=== PATIENT | female | born 1980 | race Caucasian/White ===

== ENCOUNTER 2016-04-13 18:08 | Emergency (ER) | payer OTHER ==
--- NOTE | 2016-04-13 18:52 | ED NURSING NOTES ---
Clinical Report - Nurses [facility]ly [facility] [address] [place] [address] 04/13/2016 17:26 Patient: ISRAEL DIXON TRIAGE Triage time 1815. Acuity: LEVEL 3. Chief Complaint: ABDOMINAL PAIN. Alert. No acute distress. KAROLINA COMA SCORE: Karolina Coma Scale: 15- eyes open spontaneously (4); best verbal response- oriented x 4 (5); best motor response- obeys commands (6). --18:37 Mayela Rossi R.N. 18:31 04/13/16. BP: 110/69. HR: 101. RR: 18. O2 saturation: 100%. Temp: 99.1 F. Pain level now: 07/15. --18:37 Mayela Rossi R.N. Weight: 82.5 kg stated. Height/Length: 62 inches Per Patient. BMI: 33.3. --18:36 Mayela Rossi R.N. Medications Tamiflu Oral 75 mg, 2x a day, started 04/11/16. --18:32 Mayela Rossi R.N. Tylenol with Codeine #3 Oral, as needed. --18:33 Mayela Rossi R.N. Medication/allergy information source: the patient's pill bottles. --18:37 Mayela Rossi R.N. Allergies No Known Drug Allergy. --18:33 Mayela Rossi R.N. History Arrived by private vehicle. Historian: patient. Accompanied by family. Primary physician (Yaneth Bragg). Onset. (about 1 1/2 weeks ago). ( + flu swab on Sunday). PAST MEDICAL HX: Last normal menstrual period- Oct 2015. 5. Para 4. SOCIAL HX: Smoker- current status unknown (no). No alcohol use or drug use. FALL RISK ASSESSMENT: Fall risk assessment completed. No fall risk identified. FUNCTIONAL ASSESSMENT: Functional assessment: no impairments noted. LEARNING NEEDS ASSESSMENT: The learning needs assessment revealed no barriers. --18:37 Mayela Rossi R.N. PROBLEMS: Flu. --18:34 Mayela Rossi R.N. ADDITIONAL SURGERIES: Cholecystectomy. Hernia Repair. --18:34 Mayela Rossi R.N. Assessment GENERAL / NEURO / PSYCH: Alert. Oriented X 4. Appears in no acute distress. Patient appears calm and cooperative. RESPIRATORY: Respirations not labored. Cough. SKIN: Skin is warm and dry. --18:37 Mayela Rossi R.N. Interventions ID band on patient. To treatment room. --18:37 Mayela Rossi R.N. PHYSICAL ASSESSMENT 18:41 04/13/16. To room via wheelchair. Patient gowned. GENERAL / NEURO / PSYCH: Alert. Oriented X 4. Appears in no acute distress. RESPIRATORY: Respirations not labored. ( cough). SKIN: Skin is warm and dry. --18:41 Mayela Rossi R.N. NURSING PROGRESS NOTES 18:42 04/13/16. Patient gowned. Head of bed elevated. Call light placed in reach. Side rails up x 1. Bed placed in lowest position. Brakes of bed on. --18:42 Mayela Rossi R.N. <<STRICKEN ENTRY-- 16:45 pt was brought to the ED from OB after an OB check. --19:13 Mayela Rossi R.N. --END STRIKE>> Correction --19:13 Mayela Rossi R.N. 18:45 pt was brought to the ED from OB after an OB check. --19:14 Mayela Rossi R.N. 18:58. The patient is calm and resting quietly. Overall patient status is the same- she states feels the same. SKIN: Skin is warm and dry. --19:16 Mayela Rossi R.N. DISPOSITION / DISCHARGE Departure time: 1857. Condition at departure: stable. No learning barriers present. Discharge instructions provided and reviewed with the patient. Reviewed medication(s). Prescription(s) given to the patient. Patient and spouse verbalized understanding. Written instructions provided in Malian. The patient was discharged home and accompanied by spouse. She left the Emergency Department ambulatory and via private vehicle. Spouse driving. FALL RISK ASSESSMENT: Fall risk assessment completed. No fall risk identified. --19:12 Mayela Rossi R.N. 19:11 04/13/16. Pain level now: 07/15. Additional comments: VSS. --19:12 Mayela Rossi R.N. Locked/Released at 04/13/2016 19:17 by Mayela Rossi R.N.
--- NOTE | 2016-04-13 18:52 | ED ORDER SUMMARY ---
..... Patient: ISRAEL DIXON OrderSheet [facility] VisitID: [id number] [address] [place] [address] 35y, F Registration Date/Time: 04/13/2016 ORDER SHEET Weight: 82.5 kg (stated) Allergies: No Known Drug Allergy GENERAL ORDERS: - (NEEDS ED PROCUREMENT COST COORDINATOR NOTE.) (18:25 04/13/2016 Manjit LEVINE) (18:37 Pamela R.NPayton) MEDICATION ORDERS: IV FLUIDS: ORDER SHEET NOTES: [Electronically signed by Mayela Rossi R.N. (19:17 04/13/2016)] [Electronically signed by Santino Cruz MD (21:18 04/15/2016)] [Electronically locked/signed by Mayela Rossi R.N. (19:17 04/13/2016)]
--- NOTE | 2016-04-13 18:52 | ED CLINICAL REPORT ---
Clinical Report - Physicians/Mid Levels [facility] [address] [place] [address] 04/13/2016 17:26 Patient: ISRAEL DIXON Time Seen: Directly to L&D. Arrived- By private vehicle. Historian- patient. HISTORY OF PRESENT ILLNESS Chief Complaint: ABDOMINAL PAIN and 25 WEEK . At its maximum, severity described as moderate. When seen in the E.D., severity described as moderate. Modifying factors- worsened by cough and deep breaths. It is described as "pain" and it is described as located in the right upper quadrant. This started several days ago; Ms Mckee was evaluated initially by L&D and found not to be in labor francisco javier a verbal report by the L&D nurse who transported her to the ED for evaluation of her abdominal pain. She has had several weeks of cough without current fever or chills or shortness of breath. and is still present. No nausea, loss of appetite, vomiting or diarrhea. (She has already had a cholecystectomy). Recent medical care: The patient was seen recently by a health care provider. ( Influenza + WIC 3 days ago, is now taking Tamiflu Tylenol #3). REVIEW OF SYSTEMS No difficulty with urination, pain with urination, fever, sore throat or blurred vision. No difficulty breathing or chills. Currently . She has had chest pain and a nonproductive cough. PAST HISTORY OB: Yaneth Bragg MD, [facility] Illnessess OPS: GB, UMBILICAL HERNIA. SOCIAL HISTORY Never smoker. ADDITIONAL NOTES The nursing notes have been reviewed. PHYSICAL EXAM Vital Signs: 04/13/2016 19:11 Pain level now: 07/15. 04/13/2016 18:31 BP: 110/69. HR: 101. RR: 18. O2 saturation: 100%. Temp: 99.1 F. Pain level now: 07/15. Appearance: Alert. No acute distress. Eyes: Eyes normal inspection. ENT: Pharynx normal. Neck: Normal inspection. CVS: Normal heart rate and rhythm. Heart sounds normal. Respiratory: No respiratory distress. Breath sounds normal. Chest nontender. Abdomen: Soft and nontender. Gravid uterus palpable to midpoint between umbilicus and xiphoid. Back: Normal inspection. No CVA tenderness. Skin: Skin warm. Normal skin color. No rash. PROGRESS AND PROCEDURES Course of Care: 17:54 04/13/16. Pt was greater that 20 weeks . She went directly to L&D. She has abdominal wall pain. There is not surgical abdomen or disorder of . She is not in labor per OB team exam. Disposition: Discharged. Condition: good. CLINICAL IMPRESSION Abdominal pain. ABDOMINAL WALL PAIN HISTORY OF INFLUENZA 25 WEEKS - NOT IN LABOR. INSTRUCTIONS (THIS IS FROM SORE MUSCLES FROM COUGHING THE PLAN IS TO CONTROL COUGH USING ALBUTEROL AND THE TYLENOL #3 IT WAS WILL TAKE SEVERAL WEEKS TO TO AM MONTH TO RECOVER. IMMEDIATE RECHECK FOR VAGINAL BLEEDING OR LIQUID OR MARKED INCREASE OF ABDOMINAL CRAMPING WHEN NOT COUGHING.). Prescription Medications: Albuterol HFA oral inhaler: inhale 1-2 puffs every 4 hours. Dispense one (1) unit. No refill. (PRN COUGH) Follow-up: Follow up with your doctor MAY 01 as scheduled. Understanding of the discharge instructions verbalized by patient. (Electronically signed by Santino Cruz MD 04/15/2016 21:18)
--- NOTE | 2016-04-13 18:52 | ED ORDER SUMMARY ---
..... Patient: ISRAEL DIXON OrderSheet [facility] VisitID: [id number] [address] [place] [address] 35y, F Registration Date/Time: 04/13/2016 ORDER SHEET Weight: 82.5 kg (stated) Allergies: No Known Drug Allergy GENERAL ORDERS: - (NEEDS ED FOOD SERVER NOTE.) (18:25 04/13/2016 Manjit LEVINE) (18:37 Pamela R.NPayton) MEDICATION ORDERS: IV FLUIDS: ORDER SHEET NOTES: [Electronically signed by Mayela Rossi R.N. (19:17 04/13/2016)] [Electronically signed by Santino Cruz MD (21:18 04/15/2016)] [Electronically locked/signed by Mayela Rossi R.N. (19:17 04/13/2016)]
--- NOTE | 2016-04-13 18:52 | ED CLINICAL REPORT ---
Clinical Report - Physicians/Mid Levels [facility] [address] [place] [address] 04/13/2016 17:26 Patient: ISRAEL DIXON Time Seen: Directly to L&D. Arrived- By private vehicle. Historian- patient. HISTORY OF PRESENT ILLNESS Chief Complaint: ABDOMINAL PAIN and 25 WEEK . At its maximum, severity described as moderate. When seen in the E.D., severity described as moderate. Modifying factors- worsened by cough and deep breaths. It is described as "pain" and it is described as located in the right upper quadrant. This started several days ago; Ms Mckee was evaluated initially by L&D and found not to be in labor francisco javier a verbal report by the L&D nurse who transported her to the ED for evaluation of her abdominal pain. She has had several weeks of cough without current fever or chills or shortness of breath. and is still present. No nausea, loss of appetite, vomiting or diarrhea. (She has already had a cholecystectomy). Recent medical care: The patient was seen recently by a health care provider. ( Influenza + WIC 3 days ago, is now taking Tamiflu Tylenol #3). REVIEW OF SYSTEMS No difficulty with urination, pain with urination, fever, sore throat or blurred vision. No difficulty breathing or chills. Currently . She has had chest pain and a nonproductive cough. PAST HISTORY OB: Yaneth Bragg MD, [facility] Illnessess OPS: GB, UMBILICAL HERNIA. SOCIAL HISTORY Never smoker. ADDITIONAL NOTES The nursing notes have been reviewed. PHYSICAL EXAM Vital Signs: 04/13/2016 19:11 Pain level now: 07/15. 04/13/2016 18:31 BP: 110/69. HR: 101. RR: 18. O2 saturation: 100%. Temp: 99.1 F. Pain level now: 07/15. Appearance: Alert. No acute distress. Eyes: Eyes normal inspection. ENT: Pharynx normal. Neck: Normal inspection. CVS: Normal heart rate and rhythm. Heart sounds normal. Respiratory: No respiratory distress. Breath sounds normal. Chest nontender. Abdomen: Soft and nontender. Gravid uterus palpable to midpoint between umbilicus and xiphoid. Back: Normal inspection. No CVA tenderness. Skin: Skin warm. Normal skin color. No rash. PROGRESS AND PROCEDURES Course of Care: 17:54 04/13/16. Pt was greater that 20 weeks . She went directly to L&D. She has abdominal wall pain. There is not surgical abdomen or disorder of . She is not in labor per OB team exam. Disposition: Discharged. Condition: good. CLINICAL IMPRESSION Abdominal pain. ABDOMINAL WALL PAIN HISTORY OF INFLUENZA 25 WEEKS - NOT IN LABOR. INSTRUCTIONS (THIS IS FROM SORE MUSCLES FROM COUGHING THE PLAN IS TO CONTROL COUGH USING ALBUTEROL AND THE TYLENOL #3 IT WAS WILL TAKE SEVERAL WEEKS TO TO AM MONTH TO RECOVER. IMMEDIATE RECHECK FOR VAGINAL BLEEDING OR LIQUID OR MARKED INCREASE OF ABDOMINAL CRAMPING WHEN NOT COUGHING.). Prescription Medications: Albuterol HFA oral inhaler: inhale 1-2 puffs every 4 hours. Dispense one (1) unit. No refill. (PRN COUGH) Follow-up: Follow up with your doctor MAY 01 as scheduled. Understanding of the discharge instructions verbalized by patient. (Electronically signed by Santino Cruz MD 04/15/2016 21:18)
--- NOTE | 2016-04-15 21:18 | ED MED RECONCILIATION SUMMARY ---
Patient: ISRAEL DIXON ELSDAVIDRAMONE Medication Reconciliation Report [facility] VisitID: [id number] [address] [place] [address] 35y, F Registration Date/Time: 04/13/2016 Weight: 82.5 kg Height/Length: 62 in. BMI: 33.3 ALLERGIES: No Known Drug Allergy The patient's Home Medications are listed below: THE FOLLOWING MEDICATIONS NEED TO BE RECONCILED: Tamiflu Oral 75 mg, 2x a day Tylenol with Codeine #3 Oral The source(s) of the original Home Medication information: patient's pill bottles The following Medications were given to the patient in the Emergency Department: None. The following Medications were prescribed to the patient: Albuterol HFA oral inhaler: inhale 1-2 puffs every 4 hours. Dispense one (1) unit. No refill.(PRN COUGH) -- Santino Cruz MD
--- NOTE | 2016-04-15 21:18 | ED DISCHARGE INSTRUCTIONS ---
Patient: ISRAEL DIXON General Instructions [facility] VisitID: [id number] [address] [place] [address] 35y, F Registration Date/Time: 04/13/2016 Abdominal pain. ABDOMINAL WALL PAIN HISTORY OF INFLUENZA 25 WEEKS - NOT IN LABOR. INSTRUCTIONS (THIS IS FROM SORE MUSCLES FROM COUGHING THE PLAN IS TO CONTROL COUGH USING ALBUTEROL AND THE TYLENOL #3 IT WAS WILL TAKE SEVERAL WEEKS TO TO AM MONTH TO RECOVER. IMMEDIATE RECHECK FOR VAGINAL BLEEDING OR LIQUID OR MARKED INCREASE OF ABDOMINAL CRAMPING WHEN NOT COUGHING.). Prescription Medications: Albuterol HFA oral inhaler: inhale 1-2 puffs every 4 hours. Dispense one (1) unit. No refill. (PRN COUGH) Follow-up: Follow up with your doctor MAY 01 as scheduled. Understanding of the discharge instructions verbalized by patient. ADDITIONAL INFORMATION Abdominal Pain, Unknown Cause (Female) The exact cause of your abdominal (stomach) pain is not certain. This does not mean that this is something to worry about, or the right tests were not done. Everyone likes to know the exact cause of the problem, but sometimes with abdominal pain, there is no clear-cut cause, and this could be a good thing. The good news is that your symptoms can be treated, and you will feel better. Your condition does not seem serious now; however, sometimes the signs of a serious problem may take more time to appear. For this reason,it is important for you to watch for any new symptoms, problems,or worsening of your condition. Over the next few days, the abdominal pain may come and go, or be continuous. Other common symptoms can include nausea and vomiting. Sometimes it can be difficult to tell if you feel nauseous, you may just feel bad and not associate that feeling with nausea. Constipation, diarrhea, and a fever may go along with the pain. The pain may continue even if treated correctly over the following days. Depending on how things go, sometimes the cause can become clear and may require further or different treatment. Additional evaluations, medications, or tests may be needed. Home care Your health care provider may prescribe medications for pain, symptoms, or an infection. Follow the health care provider's instructions for taking these medications. General care Rest until your next exam. No strenuous activities. Try to find positions that ease discomfort. A small pillow placed on the abdomen may help relieve pain. Something warm on your abdomen (such as a heating pad) may help, but be careful not to burn yourself. Diet Do not force yourself to eat, especially if having cramps, vomiting, or diarrhea. Water is important so you do not get dehydrated. Soup may also be good. Sports drinks may also help, especially if they are not too acidic. Make sure you don't drink sugary drinks as this can make things worse. Take liquids in small amounts. Do not guzzle them. Caffeine sometimes makes the pain and cramping worse. Avoid dairy products if you have vomiting or diarrhea. Don't eat large amounts at a time. Wait a few minutes between bites. Eat a diet low in fiber (called a low-residue diet). Foods allowed include refined breads, white rice, fruit and vegetable juices without pulp, tender meats. These foods will pass more easily through the intestine. Avoid whole-grain foods, whole fruits and vegetables, meats, seeds and nuts, fried or fatty foods, dairy, alcohol and spicy foods until your symptoms go away. Follow-up care Follow up with your health care provider as instructed, or if your pain does not begin to improve in the next 24 hours. When to seek medical care Seek prompt medical care if any of the following occur: Pain gets worse or moves to the right lower abdomen New or worsening vomiting or diarrhea Swelling of the abdomen Unable to pass stool for more than three days Fever of 100.4F (38C) or higher, or as directed by your healthcare provider. Blood in vomit or bowel movements (dark red or black color) Jaundice (yellow color of eyes and skin) Weakness, dizziness Chest, arm, back, neck or jaw pain Unexpected vaginal bleeding or missed period Call 911 Call emergency services if any of the following occur: Trouble breathing Confusion Fainting or loss of consciousness Rapid heart rate Seizure Albuterol Sulfate Pressurized inhalation, suspension What is this medicine? ALBUTEROL (al BYOO ter ole) is a bronchodilator. It helps open up the airways in your lungs to make it easier to breathe. This medicine is used to treat and to prevent bronchospasm. How should I use this medicine? This medicine is for inhalation through the mouth. Follow the directions on your prescription label. Take your medicine at regular intervals. Do not use more often than directed. Make sure that you are using your inhaler correctly. Ask you doctor or health care provider if you have any questions. Talk to your production boring machine operator regarding the use of this medicine in children. Special care may be needed. What side effects may I notice from receiving this medicine? Side effects that you should report to your doctor or health skin care specialist as soon as possible: allergic reactions like skin rash, itching or hives, swelling of the face, lips, or tongue breathing problems chest pain feeling faint or lightheaded, falls high blood pressure irregular heartbeat fever muscle cramps or weakness pain, tingling, numbness in the hands or feet vomiting Side effects that usually do not require medical attention (report to your doctor or health skin care specialist if they continue or are bothersome): cough difficulty sleeping headache nervousness or trembling stomach upset stuffy or runny nose throat irritation unusual taste What may interact with this medicine? anti-infectives like chloroquine and pentamidine caffeine cisapride diuretics medicines for colds medicines for depression or for emotional or psychotic conditions medicines for weight loss including some herbal products methadone some antibiotics like clarithromycin, erythromycin, levofloxacin, and linezolid some heart medicines steroid hormones like dexamethasone, cortisone, hydrocortisone theophylline thyroid hormones What if I miss a dose? If you miss a dose, use it as soon as you can. If it is almost time for your next dose, use only that dose. Do not use double or extra doses. Where should I keep my medicine? Keep out of the reach of children. Store at room temperature between 15 and 30 degrees C (59 and 86 degrees F). The contents are under pressure and may burst when exposed to heat or flame. Do not freeze. This medicine does not work as well if it is too cold. Throw away any unused medicine after the expiration date. Inhalers need to be thrown away after the labeled number of puffs have been used or by the expiration date; whichever comes first. Ventolin HFA should be thrown away 12 months after removing from foil pouch. Check the instructions that come with your medicine. What should I tell my health care provider before I take this medicine? They need to know if you have any of the following conditions: diabetes heart disease or irregular heartbeat high blood pressure pheochromocytoma seizures thyroid disease an unusual or allergic reaction to albuterol, levalbuterol, sulfites, other medicines, foods, dyes, or preservatives or trying to get breast-feeding What should I watch for while using this medicine? Tell your doctor or health skin care specialist if your symptoms do not improve. Do not use extra albuterol. If your asthma or bronchitis gets worse while you are using this medicine, call your doctor right away. If your mouth gets dry try chewing sugarless gum or sucking hard candy. Drink water as directed. You have been given the following additional information: Abdominal Pain, Unknown Cause, (Female) Albuterol Sulfate Pressurized inhalation, suspension (Electronically signed by Santino Cruz MD 04/15/2016 21:18)
--- NOTE | 2016-04-15 21:18 | ED MAR SUMMARY ---
..... Medication Administration Record [facility] [address] [place], [place] [id number] Patient: ISRAEL DIXON Visit ID: [id number] 35y, F Weight: 82.5 kg Height/Length: 62 in BMI: 33.3 ALLERGIES: No Known Drug Allergy
--- NOTE | 2016-04-15 21:18 | ED MAR SUMMARY ---
..... Medication Administration Record [facility] [address] [place], [place] [id number] Patient: ISRAEL DIXON Visit ID: [id number] 35y, F Weight: 82.5 kg Height/Length: 62 in BMI: 33.3 ALLERGIES: No Known Drug Allergy
--- NOTE | 2016-04-15 21:18 | ED MED RECONCILIATION SUMMARY ---
Patient: ISRAEL DIXON ELSDAVIDRAMONE Medication Reconciliation Report [facility] VisitID: [id number] [address] [place] [address] 35y, F Registration Date/Time: 04/13/2016 Weight: 82.5 kg Height/Length: 62 in. BMI: 33.3 ALLERGIES: No Known Drug Allergy The patient's Home Medications are listed below: THE FOLLOWING MEDICATIONS NEED TO BE RECONCILED: Tamiflu Oral 75 mg, 2x a day Tylenol with Codeine #3 Oral The source(s) of the original Home Medication information: patient's pill bottles The following Medications were given to the patient in the Emergency Department: None. The following Medications were prescribed to the patient: Albuterol HFA oral inhaler: inhale 1-2 puffs every 4 hours. Dispense one (1) unit. No refill.(PRN COUGH) -- Santino Cruz MD
== END 2016-04-13 18:58 | disposition home or self-care (01) ==
LOC: EDSTATUS 18:08 → ED SRH 18:09
DX: O99.89 Other specified diseases and conditions complicating pregnancy, childbirth and the puerperium (principal); R10.11 Right upper quadrant pain; J11.1 Influenza due to unidentified influenza virus with other respiratory manifestations; R05 Cough; M79.1 Myalgia; Z3A.25 25 weeks gestation of pregnancy
CPT/HCPCS: 40003